=== PATIENT | female | born 1985 | race Caucasian/White ===

== ENCOUNTER 2020-12-23 23:59 | Emergency (ER) | payer OTHER ==
[~2020-12-23] VITALS: Ht 165.1 cm; Wt 99.8 kg
--- NOTE | 2020-12-24 00:10 | NUR ---
seen by ER Doctor , primary nurse at the bedside
--- NOTE | 2020-12-24 00:22 | NUR ---
technical project manager called to notify of order
[2020-12-24] MEDS ORDERED: HYDR-3980 PO (00:28)
--- NOTE | 2020-12-24 00:34 | NUR ---
xray of lumbar done
--- NOTE | 2020-12-24 00:40 | NUR ---
awake , discharge with steady gait , denies distress , results of xray of l/s explained by md Giraldo
== END 2020-12-24 00:41 | disposition home or self-care (01) ==
LOC: ER 12-24 00:08
DX: M54.41 Lumbago with sciatica, right side (principal); Z88.2 Allergy status to sulfonamides; Z90.49 Acquired absence of other specified parts of digestive tract
CPT/HCPCS: 72100; A4663